=== PATIENT | female | born 1965 | race Caucasian/White ===

== ENCOUNTER 2021-06-07 06:52 | Day surgery (SDC) | payer BC ==
[2021-05-31 15:11] LABS: ALBUMIN 3.9 G/DL (3.4-5.0); ALBUMIN/GLOBULIN RATIO 1.4 (1.1-1.5); ALKALINE PHOSPHATASE 98 IU/L (46-116); BLOOD UREA NITROGEN 22 MG/DL (7-18); BUN/CREATININE RATIO 21.4 (6.6-38.0); CALCIUM 8.3 MG/DL (8.5-10.1); CHLORIDE 108 MMOL/L (99-107); CREATININE 1.03 MG/DL (0.40-0.90); PRE OP ALT 31 U/L (30-65); PRE OP ANION GAP 8 (8-16); PRE OP AST 23 U/L (10-37); PRE OP BILIRUB, TOTAL 0.3 MG/DL (0.0-1.0); PRE OP GLUCOSE 135 MG/DL (70-104); PRE OP POTASSIUM 4.6 MMOL/L (3.4-5.1); PRE OP SODIUM 143 MMOL/L (135-145); TOTAL CARBON DIOXIDE 27.4 MMOL/L (24-32); TOTAL PROTEIN 6.7 G/DL (6.4-8.2); eGFR 55 ML/MIN
[2021-05-31 15:18] LABS: BASOPHILS % (AUTO) 0.3 % (0-1); EOSINOPHILS # (AUTO) 0.1 X10'3 (0-0.9); EOSINOPHILS % (AUTO) 1.8 % (0-6); LYMPHOCYTES # (AUTO) 1.5 X10'3 (1.1-4.8); LYMPHOCYTES % (AUTO) 32.5 % (21-51); MEAN CORPUSCULAR HEMOGLOBIN 25.8 PG (27.0-31.0); MEAN CORPUSCULAR HGB CONC 32.4 g/dL (33.0-36.5); MEAN CORPUSCULAR VOLUME 79.4 FL (78-98); MEAN PLATELET VOLUME 9.2 FL (7.4-10.4); MONOCYTES # (AUTO) 0.4 X10'3 (0-0.9); MONOCYTES % (AUTO) 9.7 % (2-12); NEUTROPHILS # (AUTO) 2.5 X10'3 (1.8-7.7); NEUTROPHILS % (AUTO) 55.7 % (42-75); PRE OP HEMATOCRIT 37.3 % (35.0-45.0); PRE OP HEMOGLOBIN 12.1 g/dL (12.0-16.0); PRE OP PLATELET COUNT 152 X10'3 (140-440); RED BLOOD COUNT 4.69 X10'6 (4.20-5.60); RED CELL DISTRIBUTION WIDTH 17.9 % (11.5-14.5)
[2021-06-07] VITALS (7 sets, daily range): BP systolic 120–150; BP diastolic 76–85
[~2021-06-07] VITALS: Ht 162.6 cm; Wt 115.8 kg
[~2021-06-07 06:52] MED LIST: AMLO2.5T2 PO; BACL-11 PO; BUPIVAcaine/PF 2.5mg/ml (0.25%) 10ml vial ONE; BUSP5TAB3 PO; CELE-193 PO; CHOL400T57 PO; DIO160T PO; DIPH25CA83 PO; FEXO-124 PO; MELA10TA PO; METF-900 PO; OMEG1CAP46 PO; PANT40TA39 PO; QUET400T54 PO; ROSU40TA PO; SUBC1EAC17 MC; TRAM100T27 PO; cefazolin/dext.iso 2gm/100ml IV ONE; famotidine 20mg tablet PO ONE; ringers solution, lacted 1,000 ML IV SCH
[2021-06-07] MEDS ORDERED: ondansetron/PF 4mg/2ml inj IV PRN (09:00)
[2021-06-07] MEDS ORDERED: proCHLORperazine 10 MG/2 ml inj IV PRN (09:00)
[2021-06-07] MEDS ORDERED: labetalol 20mg/4ml (5mg/ml) syringe IV PRN (09:00)
[2021-06-07] MEDS ORDERED: ringers solution, lacted 1,000 ML IV SCH (09:00)
[2021-06-07] MEDS ORDERED: hydrALAZINE 20mg/ml inj. IV PRN (09:00)
[2021-06-07] MEDS ORDERED: HYDROmorphone/PF 0.2 MG/ML SYRINGE IV PRN (09:00)
[2021-06-07] MEDS ORDERED: propofol inj 20 ML IV ONE (09:43)
[2021-06-07] MEDS ORDERED: LIDOcaine 0.5% (5mg/ml) 50ml vial ONE (09:43)
[2021-06-07] MEDS ORDERED: midazolam 1 mg/ML 2ml injection ONE (09:43)
--- NOTE | 2021-06-07 09:47 | NUR ---
Received from OR via [facility], accompanied by Anesthesiologist DR BARTLETT and report given by Anesthesiologist AND CORONER. 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 Addendum: 06/07/21 at 1029 by Dara Infante RN Amended: Links added.
--- NOTE | 2021-06-07 09:47 | NUR ---
PT UP AND ABLE TO AMBULATE SAFELY, DENIES PAIN, PT HAS CONTINUOUS BLOOD GLUCOSE MONITORING, BS 77, PT STATES SHE FEELS FINE, APPLE JUICE GIVEN, PT DECLINES FOOD, STATES SHE WILL EAT ON THE WAY HOME AND HAS FOOD IN THE CAR. D/C INSTRUCTIONS GIVEN AND GONE OVER W/PT WHO VERBALIZED UNDERSTANDING. PT D'CD TO HOME VIA W/C TO PRIVATE VEHICLE W/O INCIDENT. Addendum: 06/07/21 at 1114 by Dara Infante RN Amended: Links added.
[2021-06-07] MEDS ORDERED: BUPIVAcaine/PF 2.5mg/ml (0.25%) 10ml vial ONE (09:51)
== END 2021-06-07 10:47 | disposition home or self-care (01) ==
LOC: PAS 06:52
PROVIDERS: ATTEND Orthopaedic Surgery Hand Surgery
DX: G56.01 Carpal tunnel syndrome, right upper limb (principal); M65.311 Trigger thumb, right thumb; I10 Essential (primary) hypertension; F32.9 Major depressive disorder, single episode, unspecified; K21.9 Gastro-esophageal reflux disease without esophagitis; F41.9 Anxiety disorder, unspecified; F43.10 Post-traumatic stress disorder, unspecified; E10.9 Type 1 diabetes mellitus without complications; M19.90 Unspecified osteoarthritis, unspecified site; D64.9 Anemia, unspecified; E78.00 Pure hypercholesterolemia, unspecified; J45.909 Unspecified asthma, uncomplicated; E66.9 Obesity, unspecified; Z68.41 Body mass index [BMI] 40.0-44.9, adult; Z87.891 Personal history of nicotine dependence; Z90.710 Acquired absence of both cervix and uterus; Z98.890 Other specified postprocedural states; Z88.8 Allergy status to other drugs, medicaments and biological substances; Z88.5 Allergy status to narcotic agent; Z79.899 Other long term (current) drug therapy; Z79.4 Long term (current) use of insulin; Z91.09 Other allergy status, other than to drugs and biological substances; Z72.89 Other problems related to lifestyle; Z20.822 Contact with and (suspected) exposure to COVID-19
CPT/HCPCS: 26055; 29848; 36415; 80053; 82948; 85025; 93005; J2001; J2250; J2704; J3490; U0003; Z7506; Z7512; A4215; A7000; J7120